=== PATIENT | female | born 1955 | race Caucasian/White ===

== ENCOUNTER 2024-06-26 02:25 | Emergency (ER) | payer MEDICARE, OTHER, SELFPAY ==
[2024-06-26 02:27] VITALS: BP 165/81; PULSE 84; RESP 18; TEMP 36.5; O2SAT 98; BMI 23.1
--- NOTE | 2024-06-26 02:59 | CTR_ITS ---
PROCEDURE INFORMATION: Exam: CT Abdomen And Pelvis With Contrast Exam date and time: 06/26/2024 3:40 AM Age: 68 years old Clinical indication: Abdominal pain; Generalized; Additional info: Abd pain vomiting TECHNIQUE: Imaging protocol: Computed tomography of the abdomen and pelvis with contrast. Radiation optimization: All CT scans at this facility use at least one of these dose optimization techniques: automated exposure control; mA and/or kV adjustment per patient size (includes targeted exams where dose is matched to clinical indication); or iterative reconstruction. Contrast material: OMNI 350; Contrast volume: 100 ml; Contrast route: INTRAVENOUS (IV); COMPARISON: No relevant prior studies available. RADIATION DOSE METRICS: Total DLP (mGy-cm): 369 FINDINGS: Liver: Normal. No mass. Gallbladder and biliary ducts: Normal. No calcified stones. No ductal dilation. Pancreas: Normal. No ductal dilation. Spleen: Normal. No splenomegaly. Adrenal glands: Normal. No mass. Kidneys and ureters: Small simple bilateral renal cortical cysts. Negative for hydronephrosis. Negative for perinephric inflammation. Stomach and bowel: Diverticulosis coli. Negative for bowel wall inflammatory changes. Negative for bowel obstruction. Negative for bowel perforation. Negative for pneumatosis intestinalis. Negative for mass. Appendix: No evidence of appendicitis. Intraperitoneal space: Unremarkable. No free air. No significant fluid collection. Vasculature: Unremarkable. No abdominal aortic aneurysm. Lymph nodes: Unremarkable. No enlarged lymph nodes. Urinary bladder: Unremarkable as visualized. Reproductive: Unremarkable as visualized. Bones/joints: Unremarkable. No acute fracture. Soft tissues: Unremarkable. CT/CT abdomen pelvis w con* [id number] IMPRESSION: Negative for acute abdominopelvic pathology. COMMENTS: Consistent with the [employer]'s Incidental Findings Committee white paper (J Am Tracey Radiol 2018): Any incidental renal lesion less than 1 cm or classified as too small to characterize, or any incidental cystic renal lesion characterized as simple-appearing, is likely benign. No follow-up imaging is recommended for these lesions per consensus recommendations based on imaging criteria.
[2024-06-26 03:04] LABS: Basophils % 0.4 %; Hematocrit 39.1 % (36-47); Lymphocytes # 0.6 10^3/uL (0.8-4.8); Lymphocytes % 8.7 %; Mean Corpuscular HGB Conc 33.5 g/dL (30-55); Mean Corpuscular Hemoglobin 30.8 pg (27-33); Mean Corpuscular Volume 91.8 fl (85-98); Mean Platelet Volume 10.3 fL (7.4-10.4); Monocytes # 0.4 10^3/uL (0.2-0.9); Monocytes % 5.1 %; Neutrophils # 5.88 10^3/uL (1.8-7.7); Neutrophils % 85.5 %; Nucleated Red Blood Cells % 0 %; Platelet Count 303 10^3/cmm (157-399); Red Blood Count 4.26 10^6/uL (3.85-5.65); Red Cell Distribution Width 13.1 % (12.1-15.1); White Blood Count 6.88 10^3/uL (3.29-11.43)
[2024-06-26 03:19] LABS: Alanine Aminotransferase 17 U/L (0-33); Albumin Level 4.5 g/dL (3.5-5.2); Alkaline Phosphatase 85 U/L (35-105); Aspartate Amino Transferase 23 U/L (0-32); Blood Urea Nitrogen 16 mg/dL (8-23); Calcium 9.2 mg/dL (8.5-10.5); Carbon Dioxide 22 mmol/L (22-29); Chloride 103 mmol/L (98-107); Creatinine Clr Calc Pharmacy 61.7419; Glomerular Filtration Rate 83.5 mL/min (90-130); Glucose 113 mg/dL (65-115); Lactic Sepsis W/Reflex 1.4 mmol/L (0.5-2.2); Lipase 19 U/L (13-60); Osmolality Calculated 284 mOsm/kg (285-295); Sodium 136 mmol/L (136-145); Total Bilirubin 0.5 mg/dL (0.15-1.2); Total Protein 7.5 g/dL (6.6-8.7)
[2024-06-26] MEDS: ondansetron 2 mg/ML SDV 2 mL 8 MG IVP (03:19)
[2024-06-26] MEDS: sodium chloride 0.9% 1,000 ML 999 ML IV (03:19)
[2024-06-26] MEDS: iohexol 350 mg/mL 500 mL Btl (per mL) IV (03:46)
[2024-06-26 04:03] VITALS: BP 138/82; PULSE 87; RESP 24; O2SAT 93
[2024-06-26 04:08] LABS: Bilirubin Urine Negative (Negative); Blood Urine Negative (Negative); Glucose Urine UA 3+ (Normal); Ketones Urine 3+ (Negative); Leukocyte Esterase Urine Negative (Negative); Nitrate Urine Negative (Negative); Protein Urine Trace (Negative); Urine Appearance Clear (CLEAR); Urine Color Yellow (Yellow); Urobilinogen Urine 0.2 mg/dL (Negative)
[2024-06-26 04:13] LABS: Add Urine Microscopic? YES; Bacteria Urine None Seen /hpf; Hyaline Casts Urine 1.65 /lpf; RBC Urine 0-2 /hpf (0-2); Squamous Epithelial Cell Urine 0-5 /hpf (0-5); WBC Urine 0-5 /hpf (0-5)
[2024-06-26 04:14] LABS: Specific Gravity, Urine 1.038 (1.005-1.030)
--- NOTE | 2024-06-26 04:17 | ED_ITS ---
HPI - Nausea/Vomiting/Diarrhea 2 General: Chief complaint: Nausea/Vomiting/Diarrhea Stated complaint: N/V/D Time Seen by Provider: 06/26/24 02:59 History of Present Illness: 68-year-old female with nausea vomiting diarrhea. She has had at least 2 to 3 days of symptoms. She denies fever. She admits to cold sweats. She has had cramping abdominal pain on and off, worse with vomiting. No sick contacts. No blood in the stool or vomitus. Related Data Previous Rx's Medication Instructions Recorded ondansetron 4 mg disintegrating 4 mg PO Q6H PRN nausea and 06/26/24 tablet vomiting #14 tabs Allergies Allergy/AdvReac Type Severity Reaction Status Date / Time No Known Allergies Allergy Verified 06/26/24 02:30 Physical Exam 2 Const: GENERAL APPEARANCE: cooperative and anxious; not ill appearing and not frail appearing HENMT: COMMON NORMALS: normocephalic, atraumatic and Normal external nose present HEAD & SCALP: normocephalic and atraumatic FACE & SINUS: normal facial exam and face symmetric NOSE: Normal external nose present Eye: COMMON NORMALS: Equal, round and reactive pupils present and EOMs intact bilaterally PUPIL: Yes Equal, round and reactive pupils present Neck/C-Spine: GENERAL: Yes trachea midline Chest: CHEST: Yes Symmetrical chest wall rise Resp: COMMON NORMALS: normal respiratory effort, No retractions, No use of accessory muscles and clear to auscultation bilaterally AUSCULTATION: clear to auscultation bilaterally Cardio: COMMON NORMALS: regular rate and regular rhythm RATE: regular rate RHYTHM: regular rhythm GI: COMMON NORMALS: Normal to inspection, nondistended, normoactive bowel sounds present Extremity: COMMON NORMALS: no pedal edema Neuro: MAE COMA SCALE: document GCS findings Mae coma scale eye opening: Spontaneous Mae coma scale verbal response: Orientated Mae coma scale motor response: Obey commands [place] coma scale total score: 15 S ENSORY EXAM: Yes extremities (intact) Psych: COMMON NORMALS: speech normal SPEECH: Yes normal speech Skin: COMMON NORMALS: no rashes or lesions noted GENERAL SKIN EXAM: no rashes or lesions noted Course 2 Vital Signs: Vital signs: Vital Signs Temperature 97.7 F 06/26/24 02:27 Pulse Rate 89 06/26/24 05:22 Respiratory Rate 16 06/26/24 05:22 Blood Pressure 122/68 06/26/24 05:22 Pulse Oximetry 95 06/26/24 05:22 Oxygen Delivery Me thod Room Air 06/26/24 02:27 MDM - Nausea/Vomiting/Diarrhea Medical Decision Making Vitals are normal here. Blood work shows a normal CBC, normal BMP, CRP of 3. Normal liver enzymes, and a lactate of 1.4. CT is negative for acute abdominal problems. She feels better after Zofran and fluid here. But is still anxious and nauseated. She is given more Zofran, with Ativan as well. She will be allowed discharge. Lab Data 06/26/24 02:57 06/26/24 02:57 Radiology Impressions Abdomen/Pelvis CT 06/26/24 02:59 IMPRESSION: Negative for acute abdominopelvic pathology. COMMENTS: Consistent with the [employer]'s Incidental Findings Committee white paper (J Am Tracey Radiol 2018): Any incidental renal lesion less than 1 cm or classified as too small to characterize, or any incidental cystic renal lesion characterized as simple-appearing, is likely benign. No follow-up imaging is recommended for these lesions per consensus recommendations based on imaging criteria. Laboratory Results WBC 6.88 10^3/uL (3.29-11.43) 06/26/24 02:57 RBC 4.26 10^6/uL (3.85-5.65) 06/26/24 02:57 Hgb 13.10 g/dL (11.27-16.99) 06/26/24 02:57 Hct 39.1 % (36-47) 06/26/24 02:57 MCV 91.8 fl (85-98) 06/26/24 02:57 MCH 30.8 pg (27-33) 06/26/24 02:57 MCHC 33.5 g/dL (30-55) 06/26/24 02:57 RDW 13.1 % (12.1-15.1) 06/26/24 02:57 Plt Count 303 10^3/cmm (157-399) 06/26/24 02:57 MPV 10.3 fL (7.4-10.4) 06/26/24 02:57 Neut % (Auto) 85.5 % 06/26/24 02:57 Lymph % (Auto) 8.7 % 06/26/24 02:57 [place] % (Auto) 5.1 % 06/26/24 02:57 Eos % (Auto) 0.0 % 06/26/24 02:57 Baso % (Auto) 0.4 % 06/26/24 02:57 Neut # (Auto) 5.88 10^3/uL (1.8-7.7) 06/26/24 02:57 Lymph # (Auto) 0.6 10^3/uL (0.8-4.8) L 06/26/24 02:57 [place] # (Auto) 0.4 10^3/uL (0.2-0.9) 06/26/24 02:57 Eos # (Auto) 0.0 10^3/uL (0.0-0.8) 06/26/24 02:57 Baso # (Auto) 0.0 10^3/uL (0.0-0.1) 06/26/24 02:57 Nucleated RBC % (auto) 0 % 06/26/24 02:57 Nucleated RBCs # 0.0 /100WBC 06/26/24 02:57 Sodium 136 mmol/L (136-145) 06/26/24 02:57 Potassium 4.0 mmol/L (3.5-5.1) 06/26/24 02:57 Chloride 103 mmol/L (98-107) 06/26/24 02:57 Carbon Dioxide 22 mmol/L (22-29) 06/26/24 02:57 Anion Gap 15.0 (5-19) 06/26/24 02:57 BUN 16 mg/dL (8-23) 06/26/24 02:57 Creatinine 0.7 mg/dL (0.5-0.9) 06/26/24 02:57 GFR Calculation 83.5 mL/min (90-130) L 06/26/24 02:57 Glucose 113 mg/dL (65-115) 06/26/24 02:57 Calculated Osmolality 284 mOsm/kg (285-295) L 06/26/24 02:57 Lactic Acid 1.4 mmol/L (0.5-2.2) 06/26/24 02:57 Calcium 9.2 mg/dL (8.5-10.5) 06/26/24 02:57 Total Bilirubin 0.5 mg/dL (0.15-1.2) 06/26/24 02:57 AST 23 U/L (0-32) 06/26/24 02:57 ALT 17 U/L (0-33) 06/26/24 02:57 Alkaline Phosphatase 85 U/L (35-105) 06/26/24 02:57 C-Reactive Protein 3.0 mg/L (0.0-4.9) 06/26/24 02:57 Total Protein 7.5 g/dL (6.6-8.7) 06/26/24 02:57 Albumin 4.5 g/dL (3.5-5.2) 06/26/24 02:57 Globulin 3.0 g/dL (1.3-4.6) 06/26/24 02:57 Lipase 19 U/L (13-60) 06/26/24 02:57 Urine Color Yellow (Yellow) 06/26/24 04:00 Urine Appearance Clear (CLEAR) 06/26/24 04:00 Urine pH 6.0 (5-7) 06/26/24 04:00 Ur Specific [place] 1.038 (1.005-1.030) H 06/26/24 04:00 Urine Protein Trace (Negative) A 06/26/24 04:00 Urine Glucose (UA) 3+ (Normal) H 06/26/24 04:00 Urine Ketones 3+ (Negative) H 06/26/24 04:00 Urine Blood Negative (Negative) 06/26/24 04:00 Urine Nitrate Negative (Negative) 06/26/24 04:00 Urine Bilirubin Negative (Negative) 06/26/24 04:00 Urine Urobilinogen 0.2 mg/dL (Negative) 06/26/24 04:00 Ur Leukocyte Esterase Negative (Negative) 06/26/24 04:00 Urine RBC 0-2 /hpf (0-2) 06/26/24 04:00 Urine WBC 0-5 /hpf (0-5) 06/26/24 04:00 Ur Squamous Epith Cells 0-5 /hpf (0-5) 06/26/24 04:00 Amorphous Sediment Not Reportable 06/26/24 04:00 Urine Bacteria None seen /hpf (NONE) 06/26/24 04:00 Hyaline Casts 1.65 /lpf 06/26/24 04:00 All radiology interpretation(s) finalized by discharge Discharge Plan Discharge Patient Disposition: Home Clinical Impression: Gastroenteritis Condition: Stable Prescriptions: New ondansetron 4 mg tablet,disintegrating 4 mg PO Q6H PRN (Reason: nausea and vomiting) Qty: 14 0RF Discharge Orders: Discharge ED (Routine); Ordered 06/26/24 Ordered By: Andreas Torres Patient Instructions: Gastroenteritis (ED), Opioid Safety, Pain Management Activity Restrictions/Additional Instructions: Follow a liquid diet for the next 24 hours, then you may add in solid food if she has not vomited. Take Zofran every 4 hours while awake for the next 48 hours, then as needed following that. Follow-up with your doctor this week, call later today. Return for fever, worsening pain, vomiting despite treatment, other concerning symptoms. Coding Level of Care Code ED Soft Drink Powder Mixer for Alfonzo Tompkins
[2024-06-26] MEDS: LORazepam 2 mg/mL INJ 1 mL 1 MG IVP (04:32)
[2024-06-26] MEDS: ondansetron 2 mg/ML SDV 2 mL 4 MG IVP (04:32)
[2024-06-26 05:22] VITALS: BP 122/68; PULSE 89; RESP 16; O2SAT 95
[2024-06-26 07:42] VITALS: BP 130/90; PULSE 80; RESP 18; O2SAT 97
== END 2024-06-26 07:43 | disposition home or self-care (01) ==
PROVIDERS: Emergency Provider Emergency Medicine
DX: K52.9 Noninfective gastroenteritis and colitis, unspecified (principal)
CPT/HCPCS: 74177; 80053; 81001; 83605; 83690; 85025; 86140; 96361; 96374; 96375; 96376; 99285; J2060; J2405; J7030